=== PATIENT | female | born 1950 | race Caucasian/White ===

== ENCOUNTER 2018-09-05 10:48 | Emergency (ER) | payer MEDICARE, OTHER ==
[~2018-09-05] VITALS: Ht 162.6 cm; Wt 61.2 kg
[2018-09-05 11:40] LABS: ABSOLUTE LYMPHOCYTES 0.8 thou/uL (0.8-5.3); ABSOLUTE MONOCYTES 0.6 thou/uL (0.0-1.2); ABSOLUTE NEUTROPHILS 5.6 thou/uL (1.6-8.1); BASOPHILS 0.7 %; HEMATOCRIT 42.5 % (37.0-47.0); HEMOGLOBIN 14.5 gm/dL (12.0-15.0); LYMPHOCYTES 11.7 %; MCH 33.5 pg (26.0-34.0); MCHC 34.1 g/dL (28.0-37.0); MONOCYTES 7.9 %; NUCLEATED RBCS 0 /100WBC; PLATELET COUNT* 253 thou/uL (150-400); POLYS 79.7 %; RBC 4.34 mil/uL (4.20-5.00)
[2018-09-05 11:47] LABS: ANION GAP 10 mmol/L (7-16); BUN 17 mg/dL (7-18); CALCIUM 9.3 mg/dL (8.5-10.1); CHLORIDE 97 mmol/L (98-107); CO2 26 mmol/L (21-32); GLUCOSE 113 mg/dL (70-99); POTASSIUM 4.5 mmol/L (3.5-5.1); SODIUM 133 mmol/L (136-145)
[2018-09-05 11:55] LABS: ALBUMIN 4.2 g/dL (3.4-5.0); ALKALINE PHOSPHATASE 97 U/L (46-116); SGOT 31 U/L (15-37); SGPT 28 U/L (30-65); TOTAL BILIRUBIN 0.2 mg/dL (<0.1-1.0); TOTAL PROTEIN 7.9 g/dL (6.4-8.2); TROPONIN-I LEVEL <0.06 ng/mL (<0.06)
[2018-09-05 12:15] VITALS: BP 140/79
--- NOTE | 2018-09-05 15:50 | EKG ---
[place] [address] ELECTROCARDIOGRAM REPORT Name: MICHAEL PLASENCIA Room: [facility]#: [id number] Admission: 09/05/18 Attend Phys: Discharge: 09/05/18 Date of : 52 Report #: [id number] THIS REPORT FOR: //name// [facility] ED Test Date: 2018-09-05 Test Time: 11:33:49 Pat Name: MICHAEL PLASENCIA Department: Room: Gender: F [employer] Operator: Jennifer WONG : 1950 Requested By: Lily Willouhgby Order Number: [id number] MD: Levar Sanches Measurements Intervals [place] Rate: 84 P: 65 IN: 140 QRS: -27 QRSD: 93 T: 32 QT: 364 QTc: 431 Interpretive Statements Sinus rhythm Probable left atrial enlargement Borderline left axis deviation Anteroseptal infarct, age indeterminate possible Baseline wander in lead(s) V4 No previous ECG available for comparison Electronically Signed On 09-05-2018 15:50:41 GEOMATICS PROFESSOR by Levar Sanches [email or web address] <ELECTRONICALLY SIGNED> By: Levar Sanches MD, FAC 09/05/18 1550 [id number] Levar Sanches MD, [facility] /EPI
== END 2018-09-05 12:18 | disposition home or self-care (01) ==
LOC: M.ERS 10:48
PROVIDERS: Nurse Practitioner Family
DX: I73.00 Raynaud's syndrome without gangrene (principal); R42 Dizziness and giddiness; F17.210 Nicotine dependence, cigarettes, uncomplicated